=== PATIENT | male | born 1970 | race Caucasian/White ===

== ENCOUNTER 2020-06-24 12:54 | Outpatient (REF) | payer MEDICARE, SELFPAY ==
--- NOTE | 2020-06-24 13:08 | XR_ITS ---
EXAMINATION: XR LUMBOSACRAL SPINE WITH OBLIQUES CLINICAL INFORMATION: Lumbago with sciatica, left side COMPARISON: None TECHNIQUE: Lumbar spine is imaged in 5 views: AP, lateral, bilateral oblique, and lateral view coned to lumbosacral junction. FINDINGS: There is normal lumbar segmentation with 5 nonrib-bearing lumbar vertebrae of normal height and normal lumbar lordosis. There is been prior posterior lumbosacral fusion at L5-S1 with bilateral pedicle screws and rods and lumbosacral disc spacer. The hardware is intact. There is no destructive process or osteolysis. No vertebral compression or spondylolisthesis. There is some borderline anterior vertebral spurring L1-L2 and L2-L3. No disc narrowing L1-L5. Focal anterior longitudinal ligament calcification present mid lumbar region. The oblique view show no spondylolysis. The SI joints and visualized sacrum are unremarkable. XR/XR lumbar spine 4V min IMPRESSION: 1. Status post lumbosacral fusion. Hardware intact. No destructive process. 2. No lumbar vertebral compression, spondylolisthesis, or spondylolysis.
== END 2020-06-24 12:55 | disposition home or self-care (01) ==
LOC: HO.XRAY 12:54
PROVIDERS: PCP Internal Medicine; Visit Provider Internal Medicine
DX: M54.42 Lumbago with sciatica, left side (principal)
CPT/HCPCS: 72110

== ENCOUNTER 2022-02-26 15:40 | Emergency (ER) | payer MEDICARE, MEDICAID, SELFPAY ==
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
[2022-02-26 16:29] VITALS: BP 104/67; PULSE 64; RESP 16; TEMP 36.7; O2SAT 98; BMI 21.8
--- NOTE | 2022-02-26 19:26 | PC.NURSE ---
Not in [facility] when called with other family members to [facility].
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
== END 2022-02-26 21:19 | disposition home or self-care (01) ==
PROVIDERS: Emergency Provider Emergency Medicine; PCP Internal Medicine
DX: S13.4XXA Sprain of ligaments of cervical spine, initial encounter (principal); S39.012A Strain of muscle, fascia and tendon of lower back, initial encounter; V43.62XA Car passenger injured in collision with other type car in traffic accident, initial encounter; M25.561 Pain in right knee; M25.531 Pain in right wrist; Y93.9 Activity, unspecified; Y92.414 Local residential or business street as the place of occurrence of the external cause; Y99.9 Unspecified external cause status
CPT/HCPCS: 73560; 99282; 99283

== ENCOUNTER 2022-09-08 10:41 | Outpatient (REF) | payer MEDICARE, MEDICAID, SELFPAY ==
--- NOTE | ~2022-09-08 | XR_ITS ---
EXAMINATION: XR cervical spine 5V CLINICAL INFORMATION: Pain COMPARISON: None TECHNIQUE: 5 views of the cervical spine were obtained. FINDINGS: The cervical spine is visualized to the level of C7 on the lateral view. Vertebral body alignment is maintained. Vertebral body heights are maintained. Lateral masses of C1 are well aligned on C2. Visualized portion of the dens is intact. Moderate degenerative disc disease at C4/C5, manifested by disc space narrowing and osteophytosis. Uncovertebral hypertrophy and facet arthropathy results in severe neural foraminal narrowing on the right at C4/C5 and in severe neural foraminal narrowing on the left at C4/C5. No prevertebral soft tissue swelling. XR/XR cervical spine 5V IMPRESSION: 1. Moderate spondylosis of the cervical spine, as above detailed. No significant spondylolisthesis. 2. Severe neural foraminal narrowing, as above detailed.
--- NOTE | ~2022-09-08 | XR_ITS ---
EXAMINATION: XR SHOULDER, LEFT CLINICAL INFORMATION: Left shoulder pain COMPARISON: None TECHNIQUE: AP external rotation, Grashey, scapular Y, and axillary views of the left shoulder. FINDINGS: The bones and soft tissues are normal. No fracture. Glenohumeral and acromioclavicular alignment is anatomic with normal joint space. No abnormal soft tissue calcifications. XR/XR shoulder LT min 2V IMPRESSION: Normal left shoulder.
== END 2022-09-08 10:42 | disposition home or self-care (01) ==
LOC: HO.XRAY 10:41
PROVIDERS: PCP Internal Medicine; Visit Provider Internal Medicine
DX: M25.512 Pain in left shoulder (principal); M54.2 Cervicalgia
CPT/HCPCS: 72050; 73030

== ENCOUNTER 2023-03-16 10:30 | Outpatient (REF) | payer MEDICARE, MEDICAID, SELFPAY ==
[2023-03-16 11:13] LABS: MANUAL DIFF FLAG NO
[2023-03-16 11:38] LABS: Basophils Percent Auto 0.4 % (0-2); Eosinophils Absolute Auto 0.1 X10*3/uL (0.0-0.4); Eosinophils Percent Auto 1.8 % (0-4); Hematocrit 45.1 % (42.0-52.0); Hemoglobin 14.9 g/dl (14.0-18.0); Imm Gran Abs Auto 0.01 X10*3/uL (0.00-0.03); Imm Gran Pct Auto 0.2 % (0.0-0.4); Lymphocytes Absolute Auto 1.2 X10*3/uL (1.2-4.9); Lymphocytes Percent Auto 23.6 % (20-40); Mean Corpuscular Hemoglobin 31.3 pg (27.0-33.0); Mean Corpuscular Volume 94.7 fL (80.0-98.0); Mean Platelet Volume 10.6 fL (9.4-12.4); Monocytes Absolute Auto 0.7 X10*3/uL (0.1-1.2); Monocytes Percent Auto 13.4 % (2-11); Neutrophils Percent Auto 60.6 % (45-73); Platelet Count 258 X10*3/uL (160-400); Red Blood Count 4.76 X10*6/uL (4.60-5.80); Red Cell Distribution Width 12.4 % (11.0-16.0)
[2023-03-16 11:39] LABS: Estimated Average Glucose 100 mg/dL; Hemoglobin A1c % 5.1 %
[2023-03-16 12:11] LABS: Rheumatoid Factor 116.1 IU/mL (<15.0)
[2023-03-16 12:19] LABS: Alanine Aminotransferase 23 U/L (0-40); Albumin Level 4.4 g/dL (3.5-5.0); Alkaline Phosphatase 66 U/L (39-117); Anion Gap 11 (12-20); Aspartate Amino Transferase 20 U/L (5-37); Bilirubin Direct 0.1 mg/dL (0.0-0.5); Bilirubin Total 0.3 mg/dL (0.0-1.0); Blood Urea Nitrogen 16 mg/dL (9-16); C Reactive Protein < 0.04 mg/dL (< or = 0.50); Calcium 9.6 mg/dL (8.4-10.2); Carbon Dioxide 30 mmol/L (22-29); Chloride 108 mmol/L (96-108); Cholesterol 194 mg/dL; Estimated Glomerular Filt Rate > 60; Glucose Random 83 mg/dL (60-115); HDL Cholesterol 39 mg/dL; LDL Cholesterol Calculated 121 mg/dl; Potassium 4.8 mmol/L (3.3-5.1); Sodium 144 mmol/L (135-145); Total Protein 7.7 g/dL (6.5-8.0); Triglycerides 174 mg/dL; Uric Acid 4.4 mg/dL (3.4-7.0)
[2023-03-16 12:25] LABS: Erythrocyte Sedimentation Rate 2 MM/HR (0-15)
[2023-03-16 12:34] LABS: HIV AB/AG Nonreactive (Nonreactive); HIV Num 1 0.05 S/CO (0.00-0.99)
[2023-03-16 12:35] LABS: ~HepC Num1 0.06 S/CO (0.00-0.79); ~Hepatitis C Antibody Nonreactive (Nonreactive)
[2023-03-21 16:05] LABS: Anti Nuclear Antibody Screen NEGATIVE (NEGATIVE)
== END 2023-03-16 10:31 | disposition home or self-care (01) ==
LOC: HO.HHCL 10:30
PROVIDERS: Visit Provider Internal Medicine
DX: Z11.4 Encounter for screening for human immunodeficiency virus [HIV] (principal); M25.50 Pain in unspecified joint; Z79.899 Other long term (current) drug therapy
CPT/HCPCS: 36415; 80048; 80061; 80076; 83036; 84550; 85025; 85652; 86038; 86140; 86431; 86803; 87389

== ENCOUNTER 2023-03-23 15:20 | Outpatient (REF) | payer MEDICARE, MEDICAID, SELFPAY ==
--- NOTE | 2023-03-23 | PFT_ITS ---
POST-TEST COMMENTS: The patient did try all the maneuvers with excellent effort. He could not achieve an FVC. So we selected his best effort. INDICATION: Dyspnea. SPIROMETRY: FEV1 to FVC of 87% with an FEV1 of 3.3 L, which is 74% predicted. FVC of 3.79 L, which is 67% predicted. No significant response to bronchodilator is noted. Maximum voluntary ventilation 46% predicted. LUNG VOLUMES: Total lung capacity 86% predicted. Expiratory reserve volume of 24% predicted. DIFFUSION CAPACITY: DLCO 64% predicted. COMPARISONS: None. INTERPRETATION: No obstructive nor restrictive ventilatory defects identified. No significant response to bronchodilator is noted. There is a decrease in the maximum voluntary ventilation secondary to likely deconditioning. Lung volumes are normal except for increased residual volume suggesting the possibility of air trapping. The patient also has a mild diffusion impairment. Could consider methacholine challenge to further address the question of hyperreactive airways and asthma. Although, the patient did have a difficult time during the spirometry, which may result in suboptimal results. Clinical correlation warranted. MD NAVEEN Garcia/SANGEETHA / [id number]
== END 2023-03-23 15:21 | disposition home or self-care (01) ==
LOC: HO.RESP 15:20
PROVIDERS: PCP Internal Medicine; Visit Provider Internal Medicine
DX: R06.02 Shortness of breath (principal)
CPT/HCPCS: 94010; 94727; 94729

== ENCOUNTER → 2023-03-23 15:25 | Outpatient (BNV) | payer MEDICARE, MEDICAID, SELFPAY | PROVIDERS: PCP Internal Medicine; Visit Provider Hospitalist | DX: R06.09 Other forms of dyspnea (principal) | CPT/HCPCS: 94060; 94727; 94729 ==

== ENCOUNTER 2025-03-18 11:29 | Outpatient (REF) | payer MEDICARE, MEDICAID, SELFPAY ==
--- NOTE | ~2025-03-18 | XR_ITS ---
EXAMINATION: XR SHOULDER, RIGHT CLINICAL INFORMATION: pain COMPARISON: Correlated to CT chest dated April 28, 2020. TECHNIQUE: AP external rotation, Grashey, scapular Y, and axillary views of the right shoulder. FINDINGS: There is a 4.6 mm gap at the acromioclavicular joint. The humeral head and glenoid of scapula are normal. No lytic or blastic lesions. No change vessel in the superior margin of the mid diaphysis right clavicle. 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 Electronically signed by: Marcin Ma MD 03/18/2025 01:14 PM EDT
--- NOTE | ~2025-03-18 | XR_ITS ---
EXAMINATION: XR SHOULDER, LEFT CLINICAL INFORMATION: pain COMPARISON: September 08, 2022 TECHNIQUE: AP external rotation, Grashey, scapular Y, and axillary views of the left shoulder. FINDINGS: No acute cortical disruption or malalignment. No lytic or blastic lesions. XR/XR shoulder LT min 2V IMPRESSION: Normal x-ray, left shoulder. Electronically signed by: Marcin Ma MD 03/18/2025 01:14 PM EDT
--- OUTSIDE RECORDS SUMMARY | 2025-03-18 13:05 | XMS_ITS | Clinical Summary ---
Author Organization [employer] Address [address] [place] [address] Care Team Providers Care Remedial Teacher Name Role Phone Alecia Yarbrough MD Primary Care Provide r Allergies Active Allergy Reactions Criticality Noted Date Comments Oxycodone-Acetaminophen 05/06/2020 Medications chlorhexidine (Peridex) 0.12 % solutionIndicati ons:Gingivitis Swish and spit 15 ml orally twice a day as needed for gum pain x 14 days 120 mL 11/02/2022 Active mirtazapine (Remeron) 15 MG tablet take 1 tablet by oral route every day before bedtime 30 tablet 5 12/28/2022 Active naproxen (Naprosyn) 500 MG tabletIndication s:Left shoulder pain, unspecified chronicity,Neck pain on left side TAKE 1 TABLET(500 MG) BY MOUTH IN THE MORNING AND AT BEDTIME NEEDED FOR MILD PAIN 60 tablet 07/26/2023 Active cyclobenzaprine (Flexeril) 10 MG tabletIndication s:Chronic pain of both shoulders Take 1 tablet (10 mg) by mouth 3 times daily. 90 tablet 12/27/2024 Active Active Problems Problem Noted Date Diagnosed Date Elevated rheumatoid factor 12/27/2024 Assessment & Plan (12/27/2024 2:24 PM EDT): Patient refer to rheumatology Chronic pain of both shoulders 12/27/2024 Assessment & Plan (12/27/2024 2:24 PM EDT): X-ray ordered Patient wanted something for pain reports nothing in the past worked for him I will start him again on a muscle relaxer and put him on acetaminophen arthritis 3 times a day as needed Blood work ordered today I will review with him the results Polyarthralgia 02/14/2023 Bunion of left foot 02/14/2023 Primary osteoarthritis involving multiple joints 02/14/2023 Assessment & Plan (02/14/2023 1:47 PM EDT): Continue with acetaminophen PRN Chronic low back pain 10/07/2022 Mixed anxiety and depressive disorder 10/07/2022 Assessment & Plan (12/27/2024 2:23 PM EDT): Advised patient not to miss his appointment with his therapist and psychiatrist at [facility] Multiple joint pain 10/07/2022 SOB (shortness of breath) 09/08/2022 Assessment & Plan (02/14/2023 1:46 PM EDT): PFTs already ordered, patient will be contacted to do this test Assessment & Plan (09/08/2022 10:15 AM EST): Exam normal, no wheezes, counseled and educated about tobacco cessation PFTs ordered Left shoulder pain 09/07/2022 Assessment & Plan (09/08/2022 10:15 AM EST): Pt with c/o new onset of left sided neck pain with radiation to left shoulder and arm with associated c/o tingling and numbness. On exam there is decreased ROM of his neck on lateral movements to the left, No swelling, no redness, no palpable deformity, no enlarged lymph nodes. Strength normal. Etiology ? Symptomatology seems suggestive of muscle spasm, but need to rule out cervical radiculopathy as well if he does not improve with conservative measures Plan: NSAIDS, PT eval, Acetaminophen PRN Plain films , NCS Instructed patient to call or come back if symptoms do not improve or worsen Will also obtain a CBC, HUMPHREY< CRP< ESR, Uric Acid and Rheumatoid Factor given his c/o swollen joints Neck pain on left side 09/07/2022 Assessment & Plan (09/08/2022 10:15 AM EST): Pt with c/o new onset of left sided neck pain with radiation to left shoulder and arm with associated c/o tingling and numbness. On exam there is decreased ROM of his neck on lateral movements to the left, No swelling, no redness, no palpable deformity, no enlarged lymph nodes. Strength normal. Etiology ? Symptomatology seems suggestive of muscle spasm, but need to rule out cervical radiculopathy as well if he does not improve with conservative measures Plan: NSAIDS, PT eval, Acetaminophen PRN Plain films , NCS Instructed patient to call or come back if symptoms do not improve or worsen Will also obtain a CBC, HUMPHREY< CRP< ESR, Uric Acid and Rheumatoid Factor given his c/o swollen joints Encounters Date Type Department Care Team Description 01/13/2025 Telephone [facility] [address] [place] [phone] Alecia Yarbrough MD Medication Question 12/27/2024 1:30 PM EDT Office Visit [facility] [address] [place] [phone] Alecia Yarbrough MD Chronic pain of both shoulders (Primary Dx); Elevated rheumatoid factor; Polyarthralgia; Mixed anxiety and depressive disorder 12/27/2024 Travel from Last 3 Months Immunizations Immunization Administration Dates Next Due Influenza, IIV3, injectable 05/13/2014 Moderna Covid-19 Vaccine 12+ 01/08/2021,12/12/19 21 Pneumococcal Polysaccharide PPSV23 05/13/2014 Tdap 04/29/2020,09/20/2016 Social History Tobacco Use Types Packs/Day Years Used Date Smoking Tobacco: Never Passive Smoke Exposure: Never Smokeless Tobacco: Never Tobacco Cessation:Counseling Given: Not Answered Alcohol Use Standard Drinks/Week Comments Never 0 (1 standard drink = 0.6 oz pur e alcohol) Depression Answer Date Recorded Patient Health Questionnaire-9 Score 15 12/27/2024 Patient Health Questionnaire-9 Score 15 12/27/2024 Last PHQ-9: Questionnaire Data Not on file 0 12/27/2024 Housing Stability Answer Date Recorded What is your housing situation today? I have jeremi phipps 11/05/[address] you li ve. Do you have problems with any of the following? None of the above 11/05/2024 Food Insecurity Answer Date Recorded Within the past 12 months, y ou worried that your food would run out before you got money to buy more: Never True 11/05/2024 Within the past 12 months,th e food you bought just didn't last and you didn't have enough money to get more: Never True 02/2025 Transportation Answer Date Recorded In the past 12 months, has l ack of transportation kept you from medical appts, meetings, work or from getting things needed for daily living? No 11/05/2024 Utilities Answer Date Recorded In the past 12 months, has t he electric, gas, oil or water company threatened to shut off services in your home? No 11/05/2024 Depression Answer Date Recorded Patient Health Questionnaire-2 Score 3 12/27/2024 Internet Access Answer Date Recorded Internet Access Q1 Yes 11/05/2024 Internet Access Q2 Not on file 11/05/2024 Sex and Gender Information Value Date Recorded Sex Assigned at Male 05/30/2022 10:37 AM EDT Legal Sex Male 10:37 AM EDT Gender Identity Male 05/30/2022 10:37 AM EDT Sexual Orientation Straight 05/30/2022 10 :37 AM EDT Last Filed Vital Signs Vital Sign Reading Time Taken Comments Blood Pressure 130/70 12/27/2024 1:25 PM EDT Pulse 89 12/27/2024 1:25 PM EDT Temperature 37.1 C (98.8 F) 12/27/2024 1:25 PM EDT Respiratory Rate 16 12/27/2024 1:25 PM EDT Oxygen Saturation 97% 11/02/2022 3:09 PM EDT Inhaled Oxygen Concentration - - Weight 69 kg (152 lb 3.2 oz) 12/27/2024 1:25 PM EDT Height 188 cm (6' 2 ) 12/27/2024 1:25 PM EDT Body Mass Index 19.54 12/27/2024 1:25 PM EDT Plan of Treatment Upcoming Encounters Date Type Department Care Team (Late st Contact Info) Description 05/01/2025 2:30 PM EDT Telemedicine [facility] [address] [place] [phone] Alecia Yarbrough MD [address] [place] [phone] Health Maintenance Due Date Last Done Comments CT Colonography 1971 Colonoscopy 1971 Colorectal Cancer Screening 1971 FIT DNA/Cologuard 1971 FIT 1971 FOBT 1971 Sigmoidoscopy 1971 Disability Screening 1971 Hepatitis B Vaccines (1 of 3 - 19+ 3-dose series) 1990 Pneumococcal Vaccine: 50+ Years (2 of 2 - PCV) 2021 05/13/2014 Zoster Vaccines (1 of 2) 2021 COVID-19 Vaccine (3 - 2023-2 5 season) 2024 01/08/2021, 12/11/2020 Influenza Vaccine (#1) 2025 05/13/2014 Depression Monitoring 06/29/2025 12/27/2024 , 12/27/2024 SDOH Screening 11/05/2025 11/05/2024 Alcohol/Substance Use Screening 12/27/2025 12/27/2024 Tobacco Screening 12/27/2025 12/27/2024 Lipid Panel 03/16/2028 03/16/2023 DTaP/Tdap/Td Vaccines (3 - T d or Tdap) 04/29/2030 04/29/2020, 09/20/2016 RSV Patients and Patients Aged 60 years or older (1 - 1-dose 75+ series) 2046 HIV Screening Completed 03/16/2023 Hepatitis C Screening Completed 03/16/2023 HIB Vaccines Aged Out No longer eligi ble based on patient's age to complete this topic HPV Vaccines Aged Out No longer eligi ble based on patient's age to complete this topic Hepatitis A Vaccines Aged Out No long er eligible based on patient's age to complete this topic IPV Vaccines Aged Out No longer eligi ble based on patient's age to complete this topic Meningococcal B Vaccine Aged Out No l onger eligible based on patient's age to complete this topic Meningococcal Vaccine Aged Out No maura gucci eligible based on patient's age to complete this topic RSV under 20 months Aged Out No longe r eligible based on patient's age to complete this topic Rotavirus Vaccines Aged Out No longer eligible based on patient's age to complete this topic Procedures Procedure Name Priority Date/Time Associated Diagnosis Comments HEPATITIS C ANTIBODY REFLEX Routine 03/16/2023 10:35 AM EDT HIV ANTIBODY/ANTIGEN ([place] DPH) Routine 03/16/2023 10:35 AM EDT LIPID PANEL, STANDARD Routine 03/16/2023 10:35 AM EDT Polyarthralgia Other longterm (current) drug therapy from Last 3 Months or Most Recently Relevant to Health Maintenance Results * Hepatitis C Antibody Reflex (03/16/2023 10:35 AM EDT) Hepatitis C Antibody Nonreactive Nonreactive [facility] Comment:Antibodies to HCV no t detected; does not exclude early acuteHCV infection. 03/16/2023 10:3 5 AM EDT 03/16/2023 11:10 AM EDT us Alecia Gilbert MD LAB BLOOD ORDERABLES Final Result [facility] [address] [place] [phone] * HIV Ab/Ag ([place] DPH) (03/16/2023 10:35 AM EDT) HIV AB/AG Nonreactive Nonreactive [facility] Comment:HIV-1 p24 Ag and/or HIV-1/HIV-2 Ab not detected.A test result that is nonreactive does not exclude thepossibility of exposure to or infection with HIV-1 and/orHIV-2. Nonreactive results in this assay for individualswith prior exposure to HIV-1 and/or HIV-2 may be due toantigen and antibody levels that are below the limit ofdetection of this assay.The [employer] HIV Ag/Ab Combo assay result andsupplemental assay results should be interpreted inconjunction with the patient's clinical presentation,history and other laboratory results. If the results areinconsistent with clinical evidence, additional testing issuggested to confirm the result. 03/16/2023 10:3 5 AM EDT 03/16/2023 11:10 AM EDT us Alecia Gilbert MD LAB BLOOD ORDERABLES Final Result Performing Organization Address City/[facility]/ZIP Co de Phone Number [facility] [address] [place] [phone] * Lipid Panel, Standard (03/16/2023 10:35 AM EDT) Triglycerides 174 mg/dL [facility] Comment:Desirable Triglyceri de: less than 150 mg/dLBorderline High Triglyceride 150-199 mg/dLHigh Triglyceride: 200-499 mg/dLVery High Triglyceride: greater than or equal to 5OO mg/dL Cholesterol 194 mg/dL [facility] Comment:Desirable Cholestero l: less than 200 mg/dLBorderline High Cholesterol: 200-239 mg/dLHigh Cholesterol: greater than 239 mg/dL LDL Cholesterol Calculated 121 mg/dl [facility] Comment:Desirable LDL: less than 100 mg/dLNear Optimal/Above Optimal LDL: 110- 129 mg/dLBorderline High LDL: 130-159 mg/dLHigh LDL: 160-189 mg/dLVery High LDL: greater than or equal to 190 mg/dL HDL Cholesterol 39 mg/dL [facility] Comment:Desirable HDL: great er than 40 mg/dL Note: This HDL assay may give artificially low results in patients with liver disease. Blood Venous blood specimen / Unknown 03/16/2023 10:35 AM EDT 03/16/2023 11:10 AM EDT us Alecia Gilbert MD LAB BLOOD ORDERABLES Final Result [facility] [address] [place] [phone] from Last 3 Months or Most Recently Relevant to Health Maintenance Insurance [facility] STANDARD MEDICARE Care Teams Remedial Teacher Relationship Specialty Start Date End Date Alecia Yarbrough MD [address] [place] [phone] PCP - General Family Medicine 06/16/20
== END 2025-03-18 11:30 | disposition home or self-care (01) ==
LOC: HO.HHCX 11:29
PROVIDERS: PCP Internal Medicine; Visit Provider Internal Medicine
DX: M25.511 Pain in right shoulder (principal); M25.512 Pain in left shoulder; G89.29 Other chronic pain
CPT/HCPCS: 73030

== ENCOUNTER → 2025-03-18 12:06 | Outpatient (BNV) | payer MEDICARE, MEDICAID, SELFPAY | PROVIDERS: PCP Internal Medicine; Visit Provider Radiology Diagnostic Radiology | DX: M19.011 Primary osteoarthritis, right shoulder (principal); M25.512 Pain in left shoulder | CPT/HCPCS: 73030 ==